=== PATIENT | male | born 1960 | race Caucasian/White ===

== ENCOUNTER → 2017-05-23 | Outpatient (RCR) | payer OTHER ==
[2013-10-08 20:10] VITALS: BMI 44.6
--- NOTE | 2017-04-30 15:28 | RS.OPPTEV2 ---
Date of Note: 04/30/17 Visit #: 1 Date of Evaluation: 04/30/17 Payer Source: MEDICARE Surgery Performed?: Yes (arthroscopy L knee) Date of Procedure: 04/27/17 Treatment Diagnosis: medial meniscus injury History of Condition/Mechanism of Injury:: pt states he injured his knee approx 2 months ago while climbing down out of semi truck and missed a step. Prior Level of Function.....Patient was independent with: ADL's, Self Care, Ambulation/Mobility, Community Integration/Access Functional Limitations: Sleep, Self Care, ADL's, Sitting, Standing, Bending, Squatting, Ambulation, Community Access/Integration Current Subjective/complaints:: pt states he is limited in his ADL's and amb due to pain and weakness in B LE. pt states that he has a hard time getting in/ out of bed, as well as standing up from chair. Treatment Side (optional): Left *Precautions: n/a Medical History Medical History: Hypertension, COPD, Diabetes, Arthritis Medical History Comments:: seizures Smoking Status: Never smoker Hx Home Medications: cyclobenzaprine, hydrocodone apap, ventolin HFA, fenofivrate, ranitidine, montelukast, levetiracetam, pravastatin, furosemide, tamsulosin, gabapentin, metoprolol, potassium chloride, metformin, meloxicam, novolog, amlodipine, advair, losartan/hctz, namzaric, Patient's Goals: be able to stand from chair with less difficulty Pain Assessment - Pain Description Pain Location: L knee Pain Description: Burning, Sharp, Aching Current Pain Intensity: 7-8/10 Functional Outcome Measure LE Functional Scale: 29 (64%) - G Codes & Severity Modifier G Codes & Modifier: mobility current CL. mobility goal CI Source of G Code score: Lower extremity functional index as well as PT evaluation Observation - Observation Posture: Forward Head, Increased Thoracic Kyphosis, Decreased Lumbar Lordosis Girth Measurement Lower: L LE 40 cm at knee Comments: min non pitting edema L knee Gait - Gait Pattern General Gait Pattern Observation: Antalgic Gait, Decrease Stride Lngth (L) Gait Comments: pt amb with antalgic gait pattern with decrease stance time on L and decrease step length General Range of Motion: BUE WFL's. RLE WFL's Muscle Strength: BUE grossly 4+/5. RLE hip flex 4/5, knee flex/ext 4/5, ankle DF/PF 4+/5 Knee ROM: Right WFL's Knee Muscle Strength: Right WFL's - Left Knee ROM Left Knee Extension: 0 Left Knee Flexion: 90 (AROM) Knee ROM Limitations: Soft Tissue Tightness, Muscle Weakness, Pain - Left Knee Strength Left Knee Extension: 4- Good- Left Knee Flexion: 3- Fair- - Special Tests Comments: patella mobility somewhat limited due to edema Palpation Palpation Findings: Tenderness Comments:: L knee Sensation - Sensation Right Upper Extremity: Intact/Normal Left Upper Extremity: Intact/Normal Right Lower Extremity: Impaired Left Lower Extremity: Impaired Sensation Description: Tingling Comments: numbness and tingling BLE pt states is due to neuropathy Balance - Sitting Balance Static Sitting Balance: Normal Dynamic Sitting Balance: Normal - Standing Balance Static Standing Balance: Good Dynamic Standing Balance: Fair - Comments Balance Assessment Comments: TUG score 42 secs. Tinetti score: 14/28 - Heat/Cryotherapy Treatment: Cryotherapy Comments:: L knee Interventions - Exercise/Activities/Manual Therapy Exercises/Activities: pt performed AP, QS, GS, HS, hip abd/add, SAQ, LAQ, SLR x 5 to 10 reps Manual Therapy: n/a HOME EXERCISE PROGRAM: pt given written HEP including AP, QS, GS, HS, hip abd/ add, SAQ, LAQ, SLR - Charges Timed Code Treatment Minutes: 50 Total Treatment Time: 60 Procedures billed for this date of service:: eval med, cold pack Assessment Assessment: pt presents with decreased strength, balance, as well as pain in L knee and decreased gait sequencing. Patient Education: Education of diagnosis, Home Exercise Program, Activity Modification, Education of Plan of Care Rehab Potential: Good Short Term Goals Goal #1: pt report pain <6/10 with activity Goal to be met by: 05/14/17 Goal #2: Improved L knee ROM flex 95 ext 0 Goal to be met by: 05/14/17 Goal #3: pt amb with improved sequencing and decreased antalgic gait in dept Goal to be met by: 05/14/17 Skilled Nursing Goals Goal #1: pt present with improved strength 4 to 4+/5 and independent with HEP Goal to be met by: 05/30/17 Goal #2: pt with improved dyn stand balance as noted by tinetti score of 20/28 Goal to be met by: 05/30/17 Goal #3: pt with decreased pain <5/10 with activity Goal to be met by: 05/30/17 Goal #4: pt with improved lower ext functional index >40 Goal to be met by: 05/30/17 Plan - Treatment to be Provided Procedures: Therapeutic Exercises, Therapeutic Activity, Gait Training, Neuromuscular Rehab, Manual Therapy, Patient Education Modalities: Electrical Stimulation, Ultrasound/Phonophoresis, Class IV Laser, Cryotherapy, Hot Packs - Treatment Plan Frequency: 3 X week Duration: 4 weeks ORDER # VISITS AND/OR THROUGH DATE: 12 visits through 06/01/17 - Treatment Code (1) Left knee pain Code(s): M25.562 - PAIN IN LEFT KNEE Qualifiers: Chronicity: acute Qualified Code(s): M25.562 - Pain in left knee (2) Other meniscus derangements, other medial meniscus, left knee Code(s): M23.332 - OTH MENISCUS DERANGEMENTS, OTHER MEDIAL MENISCUS, LEFT KNEE (3) Other specified postprocedural states Code(s): Z98.89 - OTHER SPECIFIED POSTPROCEDURAL STATES * DO NOT USE * Comments: Z98.890 arthroscopy L knee
--- NOTE | 2017-05-02 09:42 | RS.OPPTDN ---
Subjective Date of Note: 05/02/17 Visit #: 2 Date of Evaluation: 04/30/17 Payer Source: MEDICARE Treatment Diagnosis: medial meniscus injury Current Subjective/complaints:: Patient states yesterday is the first day he has been out of the house other than MD appts. He says each day is getting better. He says he is able to get into his vehicle better and did drive today to therapy. Reports beginning HEP yesterday. *Precautions: n/a Pain Assessment - Pain Description Pain Location: medial and anterior L knee - Heat/Cryotherapy Treatment: Cryotherapy (20 mins to L medial and anterior knee) Interventions - Exercise/Activities/Manual Therapy Exercises/Activities: Patient begins with passive L knee flex/ext, heel cord stretching. Performs: QS, Heel slides, SAQ, DF and ham curls with red tband, ball squeezes for hip add, hip abd, SLR 2x10. Patient stands for: hip abd, ext , and flexion x 10, heel raises x 10. Total minutes of Exercise: 30 Manual Therapy: n/a HOME EXERCISE PROGRAM: pt given written HEP including AP, QS, GS, HS, hip abd/ add, SAQ, LAQ, SLR - Charges Timed Code Treatment Minutes: 30 Total Treatment Time: 45 Procedures billed for this date of service:: cp, ex2 Assessment: Patient demo improved functional tasks, amb, and pain level. He has only taken 1 pain pill in the past 4 days. He appears to be following HEP and encouraged him to walk and use ice for the L knee 2-3 times per day. Patient Education: Education of diagnosis, Body/Joint mechanics, Home Exercise Program, Education of Plan of Care Patient demonstrates compliance with HEP?: Yes Short Term Goals Goal #1: pt report pain <6/10 with activity Goal to be met by: 05/14/17 Goal #2: Improved L knee ROM flex 95 ext 0 Goal to be met by: 05/14/17 Goal #3: pt amb with improved sequencing and decreased antalgic gait in dept Goal to be met by: 05/14/17 Assisted Goals Goal #1: pt present with improved strength 4 to 4+/5 and independent with HEP Goal to be met by: 05/30/17 Goal #2: pt with improved dyn stand balance as noted by tinetti score of 20/28 Goal to be met by: 05/30/17 Goal #3: pt with decreased pain <5/10 with activity Goal to be met by: 05/30/17 Goal #4: pt with improved lower ext functional index >40 Goal to be met by: 05/30/17 Plan PLAN OF CARE EXPIRES ON:: 06/01/17 ORDER # VISITS AND/OR THROUGH DATE: 12 visits through 06/01/17 PLAN: Patient to continue to receive ROM activities to improve mobility to the L knee and progressive strengthening.
--- NOTE | 2017-05-07 09:40 | RS.OPPTDN ---
Subjective Date of Note: 05/07/17 Visit #: 3 Date of Evaluation: 04/30/17 Payer Source: MEDICARE Treatment Diagnosis: medial meniscus injury Current Subjective/complaints:: Patient says he has not had to take any pain medication all weekend. Reports that he is performing some HEP and can see he is improving with "getting around" and finding exercises are becoming easier. He reports only mild fatigue with department exercise. *Precautions: n/a Pain Assessment - Pain Description Pain Location: "fatigue" no pain reported Interventions - Exercise/Activities/Manual Therapy Exercises/Activities: Patient begins with passive L knee flex/ext, heel cord stretching. Patient able to achieve 108 degrees flexion. Performs: QS, Heel slides, SAQ 2#, DF and ham curls progressed to green tband, ball squeezes for hip add, hip abd, hooklying hip abd with green tband 2x10, SLR 2x10. Patient stands for: hip abd, ext, and flexion x 10, heel raises x 15. Patient wishing to leave due to impending snow. Total minutes of Exercise: 34 Manual Therapy: n/a HOME EXERCISE PROGRAM: pt given written HEP including AP, QS, GS, HS, hip abd/ add, SAQ, LAQ, SLR - Charges Timed Code Treatment Minutes: 34 Total Treatment Time: 34 Procedures billed for this date of service:: ex2 Assessment: Patient progressing well with ROM and strengthening with only having mild fatigue. He is amb independently with more equal gait pattern. Patient Education: Education of diagnosis, Body/Joint mechanics, Home Exercise Program Patient demonstrates compliance with HEP?: Yes Short Term Goals Goal #1: pt report pain <6/10 with activity Goal to be met by: 05/14/17 Progress towards Goal:: Progressing Goal #2: Improved L knee ROM flex 95 ext 0 Goal to be met by: 05/14/17 Progress towards Goal:: Progressing Goal #3: pt amb with improved sequencing and decreased antalgic gait in dept Goal to be met by: 05/14/17 Penitentiary Goals Goal #1: pt present with improved strength 4 to 4+/5 and independent with HEP Goal to be met by: 05/30/17 Goal #2: pt with improved dyn stand balance as noted by tinetti score of 20/28 Goal to be met by: 05/30/17 Goal #3: pt with decreased pain <5/10 with activity Goal to be met by: 05/30/17 Goal #4: pt with improved lower ext functional index >40 Goal to be met by: 05/30/17 Plan PLAN OF CARE EXPIRES ON:: 06/01/17 ORDER # VISITS AND/OR THROUGH DATE: 12 visits through 06/01/17 PLAN: Patient to continue to perform strengthening and ROM exercises to achieve goals.
--- NOTE | 2017-05-09 09:45 | RS.OPPTDN ---
Subjective Date of Note: 05/09/17 Visit #: 4 Date of Evaluation: 04/30/17 Payer Source: MEDICARE Treatment Diagnosis: medial meniscus injury Current Subjective/complaints:: Patient says he has had increase in pain to the L knee the past few days. He says he believes it is from the cold and exercises. He says he has been performing HEP often and can tell he is walking better. *Precautions: n/a Interventions - Exercise/Activities/Manual Therapy Exercises/Activities: Patient begins with passive L knee flex/ext, hamstring stretching, heel cord stretching. Performs: QS, Heel slides, SAQ 2#, DF and ham curls continued with green tband, ball squeezes for hip add, hip abd, hooklying hip abd with green tband 2x10, SLR 2x8 due to fatigue. Finished with more hamstring stretching. Sitting: LAQ and hip flexion x 10. Patient stands for: hip abd, ext, and flexion x 10, heel raises x 15. Patient begins on stationary bike x 3 mins slow paced. Total minutes of Exercise: 38 Manual Therapy: n/a HOME EXERCISE PROGRAM: pt given written HEP including AP, QS, GS, HS, hip abd/ add, SAQ, LAQ, SLR - Charges Timed Code Treatment Minutes: 38 Total Treatment Time: 38 Procedures billed for this date of service:: ex3 Assessment: Patient presents with elevated pain today to the L knee. Also c/o stiffness related to colder temperatures. He is compliant with HEP and using cryotherapy at home. He demo increased HS inflexibility today compared to recent visit. He is able to jimmy stationary bike with fatigue and difficulty initiatlly with L knee forward revolutions. Patient Education: Education of diagnosis, Home Exercise Program Patient demonstrates compliance with HEP?: Yes Short Term Goals Goal #1: pt report pain <6/10 with activity Goal to be met by: 05/14/17 Progress towards Goal:: Progressing Goal #2: Improved L knee ROM flex 95 ext 0 Goal to be met by: 05/14/17 Progress towards Goal:: Progressing Goal #3: pt amb with improved sequencing and decreased antalgic gait in dept Goal to be met by: 05/14/17 Progress towards Goal:: Progressing [facility] Goals Goal #1: pt present with improved strength 4 to 4+/5 and independent with HEP Goal to be met by: 05/30/17 Goal #2: pt with improved dyn stand balance as noted by tinetti score of 20/28 Goal to be met by: 05/30/17 Goal #3: pt with decreased pain <5/10 with activity Goal to be met by: 05/30/17 Goal #4: pt with improved lower ext functional index >40 Goal to be met by: 05/30/17 Plan PLAN OF CARE EXPIRES ON:: 06/01/17 ORDER # VISITS AND/OR THROUGH DATE: 12 visits through 06/01/17 PLAN: Continue to strengthen and provide improved HS flexibility to the L LE.
--- NOTE | 2017-05-15 11:05 | RS.OPPTDN ---
Subjective Date of Note: 05/14/17 Visit #: 5 Date of Evaluation: 04/30/17 Payer Source: MEDICARE Treatment Diagnosis: medial meniscus injury Current Subjective/complaints:: Patient says he has been "getting around better " lately. He denies having any trouble with steps at home. He says that his pain is less, but feels he has trouble on the stationary bike because of his breathing. *Precautions: n/a Pain Assessment - Pain Description Pain Location: mild soreness at the L hip and upper thigh muscles Interventions - Exercise/Activities/Manual Therapy Exercises/Activities: Patient begins with passive L knee flex/ext, hamstring stretching, heel cord stretching. Performs: QS, Heel slides, SAQ 2#, DF and ham curls continued with green tband, ball squeezes for hip add, hip abd, hooklying hip abd with green tband 2x10, SLR 2x8 due to fatigue. Finished with more hamstring stretching. Sitting: LAQ and hip flexion x 10. Patient stands for: hip abd, ext, and flexion x 10, heel raises x 15. Patient begins on stationary bike x 3 mins slow paced. Total minutes of Exercise: 38 Manual Therapy: n/a HOME EXERCISE PROGRAM: pt given written HEP including AP, QS, GS, HS, hip abd/ add, SAQ, LAQ, SLR - Charges Timed Code Treatment Minutes: 38 Total Treatment Time: 38 Procedures billed for this date of service:: ex3 Assessment: Patient progressing with decreased pain to the L knee and improved ROM. He is performing HEP and jimmy increased activity in the department. Amb demo more equal WBing on L LE. No difficulty with step board. Patient Education: Education of diagnosis, Body/Joint mechanics, Home Exercise Program Patient demonstrates compliance with HEP?: Yes Short Term Goals Goal #1: pt report pain <6/10 with activity Goal to be met by: 05/14/17 Progress towards Goal:: Progressing Goal #2: Improved L knee ROM flex 95 ext 0 Goal to be met by: 05/14/17 Progress towards Goal:: Progressing Goal #3: pt amb with improved sequencing and decreased antalgic gait in dept Goal to be met by: 05/14/17 Progress towards Goal:: Progressing [employer] Goals Goal #1: pt present with improved strength 4 to 4+/5 and independent with HEP Goal to be met by: 05/30/17 Progress towards goal: Progressing Goal #2: pt with improved dyn stand balance as noted by tinetti score of 20/28 Goal to be met by: 05/30/17 Goal #3: pt with decreased pain <5/10 with activity Goal to be met by: 05/30/17 Goal #4: pt with improved lower ext functional index >40 Goal to be met by: 05/30/17 Plan PLAN OF CARE EXPIRES ON:: 06/01/17 ORDER # VISITS AND/OR THROUGH DATE: 12 visits through 06/01/17 PLAN: Patient to continue for strengthening to the L knee which will improve gait.
--- NOTE | 2017-05-16 09:18 | RS.OPPTDN ---
Subjective Date of Note: 05/16/17 Date of Evaluation: 04/30/17 Payer Source: MEDICARE Treatment Diagnosis: medial meniscus injury Current Subjective/complaints:: Patient says he was told by his MD to continue with therapy and if he is not hurting in 4 weeks, he will no longer need to follow up with him. He says his pain has been elevated due to starting to work more (prolonged standing only). Patient says he forgets to use ice. *Precautions: n/a Interventions - Exercise/Activities/Manual Therapy Exercises/Activities: Patient begins stationary bike x 5 mins. Passive stretching for L knee flex/ext, HS and heel cord stretching. Performs: QS, Heel slides, SAQ 3#, DF and ham curls continued with green tband, ball squeezes for hip add, hip abd, hooklying hip abd with green tband 2x10, SLR 2x8 due to fatigue. Finished with more hamstring stretching. Sitting: LAQ and hip flexion 3# x 20. Patient stands for: hip abd, ext, and flexion x 10, ham curls 2#, heel raises x 15. Started leg press 30# x 10, 40# x 10. Total minutes of Exercise: 38 Manual Therapy: n/a HOME EXERCISE PROGRAM: pt given written HEP including AP, QS, GS, HS, hip abd/ add, SAQ, LAQ, SLR - Charges Timed Code Treatment Minutes: 38 Total Treatment Time: 38 Procedures billed for this date of service:: ex3 Assessment: Patient progressing with demo increased strength to the L LE, but has had elevated pain as he is trying to return to work which includes prolonged standing. He was encouraged to use cryotherapy for pain and swelling. Encouraged to perform HEP more consistently. Patient Education: Education of diagnosis, Body/Joint mechanics, Home Exercise Program Short Term Goals Goal #1: pt report pain <6/10 with activity Goal to be met by: 05/14/17 Progress towards Goal:: Progressing Goal #2: Improved L knee ROM flex 95 ext 0 Goal to be met by: 05/14/17 Progress towards Goal:: Progressing Goal #3: pt amb with improved sequencing and decreased antalgic gait in dept Goal to be met by: 05/14/17 Progress towards Goal:: Progressing [facility] Goals Goal #1: pt present with improved strength 4 to 4+/5 and independent with HEP Goal to be met by: 05/30/17 Progress towards goal: Progressing Goal #2: pt with improved dyn stand balance as noted by tinetti score of 20/28 Goal to be met by: 05/30/17 Goal #3: pt with decreased pain <5/10 with activity Goal to be met by: 05/30/17 Goal #4: pt with improved lower ext functional index >40 Goal to be met by: 05/30/17 Plan PLAN OF CARE EXPIRES ON:: 06/01/17 ORDER # VISITS AND/OR THROUGH DATE: 12 visits through 06/01/17 PLAN: Patient to continue one more day this week and he may request to discontinue further therapy.
--- NOTE | 2017-05-18 10:00 | RS.OPPTDN ---
Subjective Date of Note: 05/18/17 Visit #: 7 Date of Evaluation: 04/30/17 Payer Source: MEDICARE Treatment Diagnosis: medial meniscus injury Current Subjective/complaints:: Patient c/o increased pain to the back of his knee. He says he is going back to work next week instead of just "supervising" like he has been doing. He says he has forgotten to ice his knee and reports he needs to be stretching more. *Precautions: n/a Pain Assessment - Pain Description Pain Location: Elevated posterior knee pain Interventions - Exercise/Activities/Manual Therapy Exercises/Activities: Patient begins stationary bike x 4 mins. Passive stretching for L knee flex/ext, HS and heel cord stretching. Performs: QS, Heel slides, SAQ 3#, DF and ham curls continued with green tband, ball squeezes for hip add, hip abd, hooklying hip abd with green tband 2x10, SLR 2x8 due to fatigue. Finished with more hamstring stretching. Sitting: LAQ and hip flexion 3# x 20. Patient requests to stop further exercises due to pain level. Denies cryotherapy. Total minutes of Exercise: 34 Manual Therapy: n/a HOME EXERCISE PROGRAM: pt given written HEP including AP, QS, GS, HS, hip abd/ add, SAQ, LAQ, SLR - Charges Timed Code Treatment Minutes: 34 Total Treatment Time: 34 Procedures billed for this date of service:: ex2 Assessment: Patient presents with increased pain to the L posterior knee. He has standing at work for prolonged period of time more less "supervising." He has not been consistent with cryotherapy or HEP. HS very tight today. Avoided leg press and standing therex due to patient request. Patient Education: Education of diagnosis, Body/Joint mechanics, Home Exercise Program Comments: HEP and cryotherapy more consistently Short Term Goals Goal #1: pt report pain <6/10 with activity Goal to be met by: 05/14/17 Progress towards Goal:: Progressing Goal #2: Improved L knee ROM flex 95 ext 0 Goal to be met by: 05/14/17 Progress towards Goal:: Progressing Goal #3: pt amb with improved sequencing and decreased antalgic gait in dept Goal to be met by: 05/14/17 Progress towards Goal:: Progressing [facility] Goals Goal #1: pt present with improved strength 4 to 4+/5 and independent with HEP Goal to be met by: 05/30/17 Progress towards goal: Progressing Goal #2: pt with improved dyn stand balance as noted by tinetti score of 20/28 Goal to be met by: 05/30/17 Goal #3: pt with decreased pain <5/10 with activity Goal to be met by: 05/30/17 Goal #4: pt with improved lower ext functional index >40 Goal to be met by: 05/30/17 Plan PLAN OF CARE EXPIRES ON:: 06/01/17 ORDER # VISITS AND/OR THROUGH DATE: 12 visits through 06/01/17 PLAN: Patient will continue once next week per his request and will then possibly hold further therapy.
--- NOTE | 2017-05-23 09:20 | RS.OPPTDN ---
Subjective Date of Note: 05/23/17 Visit #: 8 Date of Evaluation: 04/30/17 Payer Source: MEDICARE Treatment Diagnosis: medial meniscus injury Current Subjective/complaints:: Patient says he is hurting today. He is using ice at home now. He reports his pain was less all weekend, but elevated yesterday afternoon. He says he will not return to work at the [employer] until he's much better. Sukumar only wants to come one more session next week and then discharge. *Precautions: n/a Pain Assessment - Pain Description Pain Location: elevated generalized throughout the L knee Interventions - Exercise/Activities/Manual Therapy Exercises/Activities: Patient begins stationary bike x 3 mins. (Less time on bike related to breathing). Passive stretching for L knee flex/ext, HS and heel cord stretching. Performs: QS, Heel slides, SAQ 3#, DF and ham curls continued with green tband, ball squeezes for hip add, hip abd, hooklying hip abd with green tband 2x10, SLR 2x8. Bilateral SAQ using ball at ankles 2x10. Finished with further hamstring stretching. Standing: heel raises, ham curls, marching, hip abd all x 12 reps. Total minutes of Exercise: 38 Manual Therapy: n/a HOME EXERCISE PROGRAM: pt given written HEP including AP, QS, GS, HS, hip abd/ add, SAQ, LAQ, SLR - Charges Timed Code Treatment Minutes: 38 Total Treatment Time: 38 Procedures billed for this date of service:: ex3 Assessment: Patient with intermittent moderate to severe pain at the L knee generalized. He has been more consistent in using ice (mostly at bedtime) and seeing improvement. He has not returned to work yet due to this pain. He will be returning to [employer] in 2 weeks and requests to come only one more visit next week. Active knee flexion is WNL, ext is 0, but hamstrings and heel cords are slightly tight. Patient Education: Education of diagnosis, Body/Joint mechanics, Home Exercise Program, Education of Plan of Care Patient demonstrates compliance with HEP?: Yes (should be more consistent however) Short Term Goals Goal #1: pt report pain <6/10 with activity Goal to be met by: 05/14/17 Progress towards Goal:: Progressing Goal #2: Improved L knee ROM flex 95 ext 0 Goal to be met by: 05/14/17 Progress towards Goal:: Met Goal #3: pt amb with improved sequencing and decreased antalgic gait in dept Goal to be met by: 05/14/17 Progress towards Goal:: Met Skilled Nursing Goals Goal #1: pt present with improved strength 4 to 4+/5 and independent with HEP Goal to be met by: 05/30/17 Progress towards goal: Progressing Goal #2: pt with improved dyn stand balance as noted by tinetti score of 20/28 Goal to be met by: 05/30/17 Progress towards goal: Progressing Comments: assess next visit Goal #3: pt with decreased pain <5/10 with activity Goal to be met by: 05/30/17 Goal #4: pt with improved lower ext functional index >40 Goal to be met by: 05/30/17 Plan PLAN OF CARE EXPIRES ON:: 06/01/17 ORDER # VISITS AND/OR THROUGH DATE: 12 visits through 06/01/17 PLAN: Patient to continue per request x 1 more visit, then discharge
== END ==
PROVIDERS: ATTEND Orthopaedic Surgery
DX: M23.332 Other meniscus derangements, other medial meniscus, left knee (principal)

== ENCOUNTER 2017-05-29 08:17 | Outpatient (RCR) | payer OTHER ==
[2013-10-08 20:10] VITALS: BMI 44.6
--- NOTE | 2017-05-29 16:10 | RS.OPPTDN ---
Subjective Date of Note: 05/29/17 Visit #: 9 Date of Evaluation: 04/30/17 Payer Source: MEDICARE Treatment Diagnosis: medial meniscus injury Current Subjective/complaints:: Patient says today will be his final visit. 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 He reports that he feels better after having therapy and admits he is stronger. *Precautions: n/a Interventions - Exercise/Activities/Manual Therapy Exercises/Activities: Patient begins stationary bike x 4 mins. He has much less difficulty jimmy bike today. Passive stretching for L knee flex/ext, HS and heel cord stretching. Performs: QS, Heel slides, SAQ 3#, DF and ham curls continued with green tband, ball squeezes for hip add, hip abd, hooklying hip abd with green tband 2x10, SLR 2x8. Bilateral SAQ using ball at ankles 2x10. Finished with further hamstring stretching. LAQ 3# x 15. Standing: heel raises, ham curls, marching, hip abd all x 12 reps. Added Leg presses 15#, 30# , and 45# bilaterally x 10-15. Total minutes of Exercise: 45 Manual Therapy: n/a HOME EXERCISE PROGRAM: pt given written HEP including AP, QS, GS, HS, hip abd/ add, SAQ, LAQ, SLR - Charges Timed Code Treatment Minutes: 45 Total Treatment Time: 45 Procedures billed for this date of service:: ex3 Assessment: Patient has returned to partial work duties. ROM is WNL for the L knee. Strength is 5/5 and has progressed with all therex at this point. He has demo 46/80 on LE Functional Index improving from 64% impairment to 43%. Patient Education: Home Exercise Program Patient demonstrates compliance with HEP?: Yes Short Term Goals Goal #1: pt report pain <6/10 with activity Goal to be met by: 05/14/17 Progress towards Goal:: Met Goal #2: Improved L knee ROM flex 95 ext 0 Goal to be met by: 05/14/17 Progress towards Goal:: Met Goal #3: pt amb with improved sequencing and decreased antalgic gait in dept Goal to be met by: 05/14/17 Progress towards Goal:: Met [employer] Goals Goal #1: pt present with improved strength 4 to 4+/5 and independent with HEP Goal to be met by: 05/30/17 Progress towards goal: Met Goal #2: pt with improved dyn stand balance as noted by tinetti score of 20/28 Goal to be met by: 05/30/17 Progress towards goal: Progressing Goal #3: pt with decreased pain <5/10 with activity Goal to be met by: 05/30/17 Progress towards goal: Met Goal #4: pt with improved lower ext functional index >40 Goal to be met by: 05/30/17 Progress towards goal: Met Comments: 46 Plan PLAN OF CARE EXPIRES ON:: 06/01/17 ORDER # VISITS AND/OR THROUGH DATE: 12 visits through 06/01/17 PLAN: Patient self discharges and has completed 9 visits. He has met nearly all goals. HEP was progressed.
== END 2017-06-20 ==
PROVIDERS: ATTEND Orthopaedic Surgery
DX: M23.332 Other meniscus derangements, other medial meniscus, left knee (principal)